=== PATIENT | male | born 1975 | race Caucasian/White ===

== ENCOUNTER 2019-05-17 10:46 | Observation (INO) | payer BC ==
[2019-05-17] MEDS ORDERED: SODIUM CHLORIDE 0.9% 500 ML 500 ML IV STA (11:12)
--- NOTE | 2019-05-17 11:27 | ED ---
General Adult HPI - General Chief complaint: Neuro Symptoms/Deficit Stated complaint: Hand numbness Time Seen by Provider: 05/17/19 10:47 Source: patient, RN notes reviewed Mode of arrival: ambulatory Limitations: no limitations - History of Present Illness Initial comments: This is a 44-year-old male who presents to the emergency department stating that on his way home from [employer] she had tingling in his left hand and then he had inability to coordinate his thumb to finger movements. Patient states it lasted a few minutes and then seemed to subside but the tingling remained and then it occurred again for about 2 minutes. Patient states he had no other weakness except in his left hand. 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 Patient states he continues to tingling at this time. Patient at no time had a headache he denies any other areas of weakness. Patientis a recent visual disturbance. Patient denies any chest pain palpitations difficulty breathing shortness of breath. Patient denies any other time when he had similar symptoms. Patient denies any recent fever chills or cough. Patient denies any neck pain or injury. Patient denies any medical problems. - Related Data Home Medications Medication Instructions Recorded Confirmed Cetirizine HCl [Zyrtec] 10 mg PO DAILY PRN 05/17/19 05/17/19 Allergies Allergy/AdvReac Type Severity Reaction Status Date / Time No Known Allergies Allergy Verified 05/17/19 10:58 Review of Systems ROS Statement: Those systems with pertinent positive or pertinent negative responses have been documented in the HPI. ROS Other: All systems not noted in ROS Statement are negative. Past Medical History Past Medical History: No Reported History History of Any Multi-Drug Resistant Organisms: None Reported Past Surgical History: No Surgical Hx Reported Past Psychological History: No Psychological Hx Reported Smoking Status: Never smoker Past Alcohol Use History: Occasional Past Drug Use History: None Reported General Exam - General Exam Comments Initial Comments: GENERAL: Patient is well-developed and well-nourished. Patient is nontoxic and well- hydrated and is in no acute distress. ENT: Neck is soft and supple. No significant lymphadenopathy is noted. Oropharynx is clear. Moist mucous membranes. Neck has full range of motion without eliciting any pain. EYES: The sclera were anicteric and conjunctiva were pink and moist. Extraocular movements were intact and pupils were equal round and reactive to light. Eyelids were unremarkable. PULMONARY: Unlabored respirations. Good breath sounds bilaterally. No audible rales rhonchi or wheezing was noted. CARDIOVASCULAR: There is a regular rate and rhythm without any murmurs gallops or rubs. ABDOMEN: Soft and nontender with normal bowel sounds. No palpable organomegaly was noted. There is no palpable pulsatile mass. SKIN: Skin is clear with no lesions or rashes and otherwise unremarkable. NEUROLOGIC: Patient is alert and oriented x3. Cranial nerves II through XII are grossly intact. Motor and sensory are also intact. Normal speech, volume and content. Symmetrical smile. Finger to nose cerebellar testing is normal bilaterally MUSCULOSKELETAL: Normal extremities with adequate strength and full range of motion. No lower extremity swelling or edema. No calf tenderness. LYMPHATICS: No significant lymphadenopathy is noted PSYCHIATRIC: Normal psychiatric evaluation. Limitations: no limitations Course Vital Signs 05/17/19 05/17/19 10:47 13:41 Temperature 98.1 F 97.2 F L Pulse Rate 85 75 Respiratory 18 18 Rate Blood Pressure 153/104 134/88 O2 Sat by Pulse 99 98 Oximetry Medical Decision Making - Medical Decision Making Patient did not have any documentable neurologic deficit. Patient's did state she watched him try to touch his thumb to all of his fingers and he was missing and in doing it very slowly in comparison to his right hand. EKG shows normal sinus rhythm at 67 bpm HI interval 132 QRS is under 12 QT interval 426 QTC is 450. Patient's EKG shows no ST segment elevation or de pression or T wave abnormalities are noted. Patient's chest x-ray shows no acute normalities. CT of the brain shows no acute normalities. Patient's hand still feels weird to him though he is able to move it he feels as though his fifth digit is still not moving as well as it should. - Lab Data Result diagrams: 05/17/19 11:15 05/17/19 11:15 Lab Results 05/17/19 05/17/19 05/17/19 Range/Units 11:15 11:15 11:15 WBC 5.3 (3.8-10.6) k/uL RBC 4.83 (4.30-5.90) m/uL Hgb 15.9 (13.0-17.5) gm/dL Hct 45.8 (39.0-53.0) % MCV 94.8 (80.0-100.0) fL MCH 32.8 (25.0-35.0) pg MCHC 34.6 (31.0-37.0) g/dL RDW 14.0 (11.5-15.5) % Plt Count 233 (150-450) k/uL Neutrophils % 49 % Lymphocytes % 31 % Monocytes % 9 % Eosinophils % 8 % Basophils % 1 % Neutrophils # 2.6 (1.3-7.7) k/uL Lymphocytes # 1.6 (1.0-4.8) k/uL Monocytes # 0.5 (0-1.0) k/uL Eosinophils # 0.4 (0-0.7) k/uL Basophils # 0.1 (0-0.2) k/uL PT 10.5 (9.0-12.0) sec INR 1.0 (<1.2) APTT 24.6 (22.0-30.0) sec Sodium 137 (137-145) mmol/L Potassium 3.8 (3.5-5.1) mmol/L Chloride 106 (98-107) mmol/L Carbon Dioxide 23 (22-30) mmol/L Anion Gap 8 mmol/L BUN 20 (9-20) mg/dL Creatinine 1.14 (0.66-1.25) mg/dL Est GFR (CKD-EPI)AfAm 90 (>60 ml/min/1.73 sqM) Est GFR (CKD-EPI)NonAf 78 (>60 ml/min/1.73 sqM) Glucose 118 H (74-99) mg/dL Calcium 9.1 (8.4-10.2) mg/dL Total Bilirubin 0.8 (0.2-1.3) mg/dL AST 27 (17-59) U/L ALT 22 (21-72) U/L Alkaline Phosphatase 54 (38-126) U/L Troponin I (0.000-0.034) ng/mL Total Protein 6.8 (6.3-8.2) g/dL Albumin 4.2 (3.5-5.0) g/dL 05/17/19 Range/Units 11:15 WBC (3.8-10.6) k/uL RBC (4.30-5.90) m/uL Hgb (13.0-17.5) gm/dL Hct (39.0-53.0) % MCV (80.0-100.0) fL MCH (25.0-35.0) pg MCHC (31.0-37.0) g/dL RDW (11.5-15.5) % Plt Count (150-450) k/uL Neutrophils % % Lymphocytes % % Monocytes % % Eosinophils % % Basophils % % Neutrophils # (1.3-7.7) k/uL Lymphocytes # (1.0-4.8) k/uL Monocytes # (0-1.0) k/uL Eosinophils # (0-0.7) k/uL Basophils # (0-0.2) k/uL PT (9.0-12.0) sec INR (<1.2) APTT (22.0-30.0) sec Sodium (137-145) mmol/L Potassium (3.5-5.1) mmol/L Chloride (98-107) mmol/L Carbon Dioxide (22-30) mmol/L Anion Gap mmol/L BUN (9-20) mg/dL Creatinine (0.66-1.25) mg/dL Est GFR (CKD-EPI)AfAm (>60 ml/min/1.73 sqM) Est GFR (CKD-EPI)NonAf (>60 ml/min/1.73 sqM) Glucose (74-99) mg/dL Calcium (8.4-10.2) mg/dL Total Bilirubin (0.2-1.3) mg/dL AST (17-59) U/L ALT (21-72) U/L Alkaline Phosphatase (38-126) U/L Troponin I <0.012 (0.000-0.034) ng/mL Total Protein (6.3-8.2) g/dL Albumin (3.5-5.0) g/dL Disposition Clinical Impression: Transient cerebral ischemia Disposition: ADMITTED IP TO THIS HOSP Referrals: Sha Isbell MD [Primary Care Provider] - 1-2 days Time of Disposition: 14:13
[2019-05-17 11:33] LABS: Basophils # (A) 0.1 k/uL (0-0.2); Basophils % (A) 1 %; Eosinophils # (A) 0.4 k/uL (0-0.7); Eosinophils % (A) 8 %; HCT 45.8 % (39.0-53.0); HGB 15.9 gm/dL (13.0-17.5); Lymphocytes # (A) 1.6 k/uL (1.0-4.8); Lymphocytes % (A) 31 %; MCH 32.8 pg (25.0-35.0); MCHC 34.6 g/dL (31.0-37.0); MCV 94.8 fL (80.0-100.0); Mean Platelet Volume 6.8; Monocytes # (A) 0.5 k/uL (0-1.0); Monocytes % (A) 9 %; Neutrophils # (A) 2.6 k/uL (1.3-7.7); Neutrophils % (A) 49 %; Platelet Count 233 k/uL (150-450); RBC 4.83 m/uL (4.30-5.90); WBC 5.3 k/uL (3.8-10.6)
[2019-05-17 11:46] LABS: Albumin 4.2 g/dL (3.5-5.0); Calcium 9.1 mg/dL (8.4-10.2); Potassium 3.8 mmol/L (3.5-5.1); Total Bilirubin 0.8 mg/dL (0.2-1.3); Total Protein 6.8 g/dL (6.3-8.2)
--- NOTE | 2019-05-17 11:47 | CT ---
EXAMINATION TYPE: CT brain wo con DATE OF EXAM: 05/17/2019 COMPARISON: NONE HISTORY: Lt hand numbness CT DLP: 1079.4 mGycm Automated exposure control for dose reduction was used. FINDINGS: Central structures are midline. There is no evidence of hydrocephalus. No acute focal lesion, mass ef fect or midline shift is seen. I do not see evidence of intracranial blood. Visualized portions of the paranasal sinuses are clear. The bony calvarium is intact. IMPRESSION: NO ACUTE INTRACRANIAL ABNORMALITY.
--- NOTE | 2019-05-17 11:48 | XR ---
EXAMINATION TYPE: XR chest 2V DATE OF EXAM: 05/17/2019 HISTORY: altered mental status. REFERENCE: Previous study dated 07/22/2013. FINDINGS: The lungs are clear. Pleural space are clear. The heart is not enlarged. IMPRESSION: NORMAL CHEST.
[2019-05-17 11:51] LABS: Partial Thromboplastin Time 24.6 sec (22.0-30.0); Prothrombin Time 10.5 sec (9.0-12.0)
[2019-05-17] MEDS ORDERED: ASPIRIN 325 MG TAB PO STA (14:13)
--- NOTE | 2019-05-17 15:58 | US ---
EXAMINATION TYPE: US carotid duplex BILAT DATE OF EXAM: 05/17/2019 COMPARISON: NONE CLINICAL HISTORY: Stenosis. EXAM MEASUREMENTS: RIGHT: Peak Systolic Velocity (PSV) cm/sec ----- Right CCA: 107.7 ----- Right ICA: 66.9 ----- Right ECA: 104.8 ICA/CCA ratio: 0.61 RIGHT: End Diastole cm/sec ----- Right CCA: 23.6 ----- Right ICA: 24.1 ----- Right ECA: 19.2 LEFT: Peak Systolic Velocity (PSV) cm/sec ----- Left CCA: 93.2 ----- Left ICA: 84.6 ----- Left ECA: 88.6 ICA/CCA ratio: 0.9 LEFT: End Diastole cm/sec ----- Left CCA: 23.6 ----- Left ICA: 29.7 ----- Left ECA: 13.8 VERTEBRALS (direction of flow): Right Vertebral: Antegrade Left Vertebral: Antegrade Rhythm: Normal Minimal atherosclerotic changes with no significant velocity increases. IMPRESSION: There is antegrade flow in the vertebral arteries. The images and measurements suggest l ess than 25% stenosis in both internal carotid arteries. Criteria for Assigning % of Stenosis / Diameter reduction (Estimation based on the indirect measurements of the internal carotid artery velocities (ICA PSV). 1. Normal (no stenosis)=ICA PSV < 125 cm/s: ratio < 2.0: ICA EDV<40 cm/s. 2. Less than 50% stenosis=ICA PSV < 125 cm/s: ratio < 2.0: ICA EDV<40 cm/s. 3. 50 to 69% stenosis=ICA PSV of 125 to 230 cm/s: ration 2.0 ? 4.0: ICA EDV 40-100 cm/s. 4. Greater than 70% stenosis to near occlusion= ICA PSV > 230 cm/s: ratio > 4.0: ICA EDV > 100 cm/s. 5. Near occlusion= ICA PSV velocities may be low or undetectable: variable ratio and ICA EDV. 6. Total occlusion=unable to detect flow.
--- NOTE | 2019-05-17 16:55 | P.HPIM ---
History of Present Illness H&P Date: 05/17/19 Chief Complaint: Weakness of the left ring and little finger Mr. Romero is a 43-year-old male with no significant past medical history coming into the hospital with a chief complaint of weakness of the left ring and little fingers for a few minutes. He states that he was on his way home from work when he noticed some tingling sensation in his left hand. 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 And when he tried to count his fingers with the right thumb he was not able to do it for a couple of minutes. At that time patient denies having any weakness in other parts of the body. He denies having any headaches, blurring of vision. No chest pain or palpitations. No difficulty in breathing. He denies having similar complaints in the past. Patient denies having any neck pain or injuries in the past. Patient does not have any medical histories. He does not take any medications. No history of smoking. 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 He is a very active person. Occasionally drinks alcohol. He denies having any family history of stroke or coronary artery dis ease. Patient reports that these symptoms have been there only for a few minutes and completely resolved since he has been in the ED. In the emergency room the patient had blood work done that was within normal limits. Troponins within normal limits. He had a brain CT that was within normal limits and EKG within normal limits. He also had a carotid artery Doppler study that was showing less than 25% stenosis in both internal carotid arteries. Review of Systems REVIEW OF SYSTEMS: PSYCH: No history of anxiety or depression NEURO: As per HPI VASCULAR: No edema. HEMATOLOGIC: No history of easy bleeding and bruising . No recent infections . RESPIRATORY: No cough, No SOB, No chest discomfort. 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 GI: No abdominal pain, Nausea or vomiting. No constipation or diarrhea. 13 review of systems done and negative except for the ones mentioned above Past Medical History Past Medical History: No Reported History History of Any Multi-Drug Resistant Organisms: None Reported Past Surgical History: No Surgical Hx Reported Past Anesthesia/Blood Transfusion Reactions: No Reported Reaction Past Psychological History: No Psychological Hx Reported Smoking Status: Never smoker Past Alcohol Use History: Occasional Past Drug Use History: None Reported - Past Family History Father Additional Family Medical History / Comment(s): no medical history Mother Additional Family Medical History / Comment(s): no medical history Medications and Allergies Home Medications Medication Instructions Recorded Confirmed Type Cetirizine HCl [Zyrtec] 10 mg PO DAILY PRN 05/17/19 05/17/19 History Allergies Allergy/AdvReac Type Severity Reaction Status Date / Time No Known Allergies Allergy Verified 05/17/19 10:58 Physical Exam Vitals: Vital Signs Temp Pulse Pulse Resp BP BP Pulse Ox 05/17/19 15:24 97.8 F 61 18 143/88 98 05/17/19 15:17 98.3 F 97 18 143/102 98 05/17/19 13:41 97.2 F L 75 18 134/88 98 05/17/19 10:47 98.1 F 85 18 153/104 99 Intake and Output 05/17/19 05/17/19 05/17/19 06:59 14:59 22:59 Intake Total 400 Balance 400 Intake: Oral 400 Other: Voiding Method Toilet Weight 80.739 kg GEN. APPEARANCE: alert, in no apparent distress HEAD EXAM: Atraumatic normocephalic EYE EXAM: Pupils round and reactive to light. No pallor. No icterus. ENT EXAM: normal exam, mucous membranes moist NECK EXAM: No JVD. No thyromegaly. RESPIRATORY EXAM: Bilateral breath sounds are positive. No wheeze or crackles. CARDIOVASCULAR EXAM: S1-S2 heard. No additional sounds. GI/ABDOMINAL EXAM: soft, normal bowel sounds. No guarding or rigidity. No organomegaly. EXTREMITIES EXAM: No pedal edema. NEUROLOGICAL EXAM: alert, oriented X3, no focal neurological deficits. Strength is 5 out of 5 in all 4 extremities. Power is 5 out of 5 in all 4 extr emities. Ankle to heel test normal, Finger-nose test normal. Gait is normal. PSYCHIATRIC EXAM: normal affect, normal mood SKIN EXAM: warm, dry, intact, normal color. Absent: rash Results CBC & Chem 7: 05/17/19 11:15 05/17/19 11:15 Labs: Abnormal Lab Results - Last 24 Hours (Table) 05/17/19 Range/Units 11:15 Glucose 118 H (74-99) mg/dL Thrombosis Risk Factor Assmnt - Choose All That Apply Any of the Below Risk Factors Present?: Yes Each Factor Represents 1 point: Age 41-60 years Thrombosis Risk Factor Assessment Total Risk Factor Score: 1 Thrombosis Risk Factor Assessment Level: Low Risk Assessment and Plan Assessment: ASSESSMENT Weakness of the left hand - probably TIA PLAN: Patient has resolution of the symptoms within couple of minutes, probably TIA. He had a CAT scan of the head, EKG, carotid artery Doppler that was within normal limits. Will observe the patient for 24 hours, will get an echocardiogram. Further recommendations depending on the progress of the patient. The treatment plan was discussed in detail with the patient at the bedside.
[2019-05-17 21:42] VITALS: RESP 16
--- NOTE | 2019-05-17 21:44 | P.CNNES ---
History of Present Illness Consult date: 05/17/19 Requesting physician: Sha Finney Reason for Consult: TIA Chief complaint: Left arm/hand went numb and weak History of Present Illness: This is a 44 RH male who was driving with his left elbow rested against the inside of the car door when suddenly he experienced numbness/tingling of the 4th and 5th digits on the left as well as loss of manual dexterity of the same hand. The right side was never affected. The above neuro symptoms have improved. Patient decided to stay for inpatient work-up after discussion with ER MD as his neuro symptoms still have not completely resolved. Denies head/neck/LUE trauma. 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 Denies neck pain, cervical radicular symptoms or Lhermitte's. He also denies any conventional vascular risk factors such as HTN, DM, HL or tobacco use. Review of Systems 14-point ROS performed and as per HPI. Neurologically, patient denies decreased level or loss of consciousness, headache, seizure, changes in vision, diplopia, amaurosis, changes in hearing, facial droop, ptosis, vertigo, hearing loss, tinnitus, dysarthria, dysphagia, aphasia, other focal numbness/weakness not mentioned above, tremors, bowel/bladder incontinence or ataxia. Past Medical History Past Medical History: No Reported History History of Any Multi-Drug Resistant Organisms: None Reported Past Surgical History: No Surgical Hx Reported Past Anesthesia/Blood Transfusion Reactions: No Reported Reaction Past Psychological History: No Psychological Hx Reported Smoking Status: Never smoker Past Alcohol Use History: Occasional Past Drug Use History: None Reported - Past Family History Father Additional Family Medical History / Comment(s): no medical history Mother Additional Family Medical History / Comment(s): no medical history Medications and Allergies Home Medications Medication Instructions Recorded Confirmed Type Cetirizine HCl [Zyrtec] 10 mg PO DAILY PRN 05/17/19 05/17/19 History Allergies Allergy/AdvReac Type Severity Reaction Status Date / Time No Known Allergies Allergy Verified 05/17/19 10:58 Physical Examination - Vital Signs Vital Signs: Vital Signs Temp Pulse Pulse Resp BP BP Pulse Ox 05/17/19 15:24 97.8 F 61 18 143/88 98 05/17/19 15:17 98.3 F 97 18 143/102 98 05/17/19 13:41 97.2 F L 75 18 134/88 98 05/17/19 10:47 98.1 F 85 18 153/104 99 Intake and Output 05/17/19 05/17/19 05/17/19 06:59 14:59 22:59 Intake Total 622 Balance 622 Intake: Oral 622 Other: Voiding Method Toilet Weight 80.739 kg Gen NAD Pleasant and cooperative HEENT NCAT Sclera without icterus O/P clear Neck Supple No carotid bruit Cor RRR no m/r/g Lungs CTAB Abd Soft NTND +BS Ext Warm to touch No edema Neuro MS A+Ox4 Normal fluency Able to follow all commands CN PERRL VFF no APD EOMI no nystagmus or FLY No facial asymmetry Masseter's symmetric Hearing intact to normal voice bilaterally Speech not dysarthric Equal elevation of palate Tongue midline Sym shrug and SCM bilaterally Motor Normal bulk/tone No pronator or tremors Strength 5/5 sym throughout Sens Diminished to LT in medial left hand No neglect or extinction Percussion of the left medial wrist and medial epicondyle does not worsen paresthesias No Lhermitte's Coord No dysmetria on FTN bilaterally FFN slightly less dextrous on the left though this is his non-dominant hand DTRs 2+/4 sym throughout Toes downgoing bilaterally No clonus at achilles Gait Deferred NIHSS 1 Results - Laboratory Findings CBC and BMP: 05/17/19 11:15 05/17/19 11:15 Abnormal Lab Findings: Abnormal Labs 05/17/19 11:15 Glucose 118 H - Diagnostic Findings Additional findings: CT Head wo cont 05/17/19. No ICH. Nil acute. Carotid duplex 05/17/19. <25% stenosis in BICA. Bilateral antegrade flow of vertebral arteries. I have reviewed neuroimages myself. Assessment and Plan Assessment: LUE numbness/weakness. Given his lack of stroke risk factors and clinical presentation, TIA is possible but also suspect ulnar nerve i rritation/neuropathy. Plan: -MRI Brain ordered -If MRI negative, can discontinue aspirin and set patient up for outpatient neuro follow-up and EMG/NCS to r/o ulnar n. entrapment -Carotid duplex reviewed and unrevealing -TTE ordered by primary team -Fasting lipids in am. Goal depends on whether he rules in for acute intracranial ischemia on MRI. If so, goal LDL would be <70 -PT/OT/SP per protocol -Stroke education given -DVT prophylaxis -Meanwhile, counseled patient not to bend and/or rest left elbow against surface for extended periods of time -d/w patient and family in detail. All questions answered. Thank you for this consultation. Please call with ?. Time with Patient: Greater than 30 (Time spent in direct patient care, greater than 50% of which was spent in [id number] counseling and coordination of care: 70 minutes)
[2019-05-18 06:34] LABS: Cholesterol 159 mg/dL (<200); HDL Cholesterol 40 mg/dL (40-60); LDL Cholesterol,Calculated 100 mg/dL (0-99); Triglycerides 95 mg/dL (<150)
[2019-05-18] MEDS ORDERED: ATORVASTATIN 40 MG TAB PO SCH (09:00)
[2019-05-18] MEDS ORDERED: ASPIRIN 325 MG TAB PO SCH (09:00)
[2019-05-18 09:55] VITALS: BP 132/72; PULSE 58; TEMP 98.7
--- NOTE | 2019-05-18 11:24 | P.PN ---
Progress Note - Text Progress Note Date: 05/18/19 Called by RN just now as patient refuses to stay for MRI or follow up with outpatient neurology. Will have him sign out AMA then. No further inpatient neuro recs at this time. Please call with new ?.
--- NOTE | 2019-05-18 11:30 | ECHOF ---
Referral Reason:TIA MEASUREMENTS -------- HEIGHT: 182.9 cm WEIGHT: 79.8 kg BP: 129/79 RVIDd: 3.2 cm (< 3.3) IVSd: 0.7 cm (0.6 - 1.1) LVIDd: 4.2 cm (3.9 - 5.3) LVPWd: 0.8 cm (0.6 - 1.1) IVSs: 1.2 cm LVIDs: 3.0 cm LVPWs: 1.5 cm Ao Diam: 3.0 cm (2.0 - 3.7) AV Cusp: 2.0 cm (1.5 - 2.6) LA Diam: 3.1 cm (2.7 - 3.8) MV EXCURSION: 11.800 mm (> 18.000) MV EF SLOPE: 69 mm/s (70 - 150) EPSS: 0.6 cm MV E Carlos: 0.61 m/s MV DecT: 247 ms MV A Carlos: 0.48 m/s MV E/A Ratio: 1.28 RAP: 5.00 mmHg RVSP: 20.96 mmHg FINDINGS -------- Sinus rhythm. This was a technically good study. The left ventricular size is normal. Left ventricular wall thickness is normal. Overall left vent ricular systolic function is normal with, an EF between 55 - 60 %. The right ventricle is normal in size. The left atrial size is normal. The right atrial size is normal. Interatrial and interventricular septum intact. The aortic valve is trileaflet and appears structurally normal. The mitral valve is normal. The mitral valve leaflets are mildly thickened. There is trace mitral regurgitation. Trace tricuspid regurgitation present. Right ventricular systolic pressure is normal at < 35 mmHg. Trace/mild (physiologic) pulmonic regurgitation. The aortic root size is normal. Normal inferior vena cava with normal inspiratory collapse consistent with estimated right atrial pre ssure of 5 mmHg. There is no pericardial effusion. CONCLUSIONS -------- 1. Sinus rhythm. 2. This was a technically good study. 3. The left ventricular size is normal. 4. Left ventricular wall thickness is normal. 5. Overall left ventricular systolic function is normal with, an EF between 55 - 60 %. 6. The right ventricle is normal in size. 7. The left atrial size is normal. 8. The right atrial size is normal. 9. Interatrial and interventricular septum intact. 10. The aortic valve is trileaflet and appears structurally normal. 11. The mitral valve is normal. 12. The mitral valve leaflets are mildly thickened. 13. There is trace mitral regurgitation. 14. Trace tricuspid regurgitation present. 15. Right ventricular systolic pressure is normal at < 35 mmHg. 16. Trace/mild (physiologic) pulmonic regurgitation. 17. The aortic root size is normal. 18. Normal inferior vena cava with normal inspiratory collapse consistent with estimated right atrial pressure of 5 mmHg. 19. There is no pericardial effusion. CRIME DATA SPECIALIST: Mary Pak RDCS
--- NOTE | 2019-05-18 11:39 | P.DS ---
Providers Date of admission: 05/17/19 14:13 Expected date of discharge: 05/18/19 Attending physician: Dorothy Clark Consults: 05/17/19 14:28 Consult Physician Urgent Consulting Provider: Debbie Melgar Consult Reason/Comments: TIA Do you want consulting provider notified?: Yes Primary care physician: [facility] Course: Mr. Romero is a 43-year-old male with no significant past medical history coming into the hospital with a chief complaint of weakness of the left ring and little fingers for a few minutes. He states that he was on his way home from work when he noticed some tingling sensation in his left hand. Patient states that he felt his collar stay fuser tender was weak. And when he tried to count his fingers with the right thumb he was not able to do it for a couple of minutes. At that time patient denies having any weakness in other parts of the body. He denies having any headaches, blurring of vision. No chest pain or palpitations. No difficulty in breathing. He denies having similar complaints in the past. Patient denies having any neck pain or injuries in the past. Patient does not have any medical histories. He does not take any medications. No history of smoking. 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 He is a very active person. Occasionally drinks alcohol. He denies having any family history of stroke or coronary artery disease. Patient reports that these symptoms have been there only for a few minutes and completely resolved since he has been in the ED. In the emergency room the patient had blood work done that was within normal limits. Troponins within normal limits. He had a brain CT that was within normal limits and EKG within normal limits. He also had a carotid artery Doppler study that was showing less than 25% stenosis in both internal carotid arteries. On 05/18/2019 - patient was evaluated by neurologist last night. He was recommended to get an MRI that is scheduled for this evening. Discussed the plan in detail with the patient, he stated that he could not wait for that long and would leave the hospital AGAINST MEDICAL ADVICE. Medication reconciliation could not be done as the patient left AGAINST MEDICAL ADVICE. DISCHARGE DIAGNOSIS Weakness/numbness of the left hand - probably TIA Patient Condition at Discharge: Serious Plan - Discharge Summary Discharge Rx Participant: No New Discharge Prescriptions: No Action Cetirizine HCl [Zyrtec] 10 mg PO DAILY PRN PRN Reason: Allergy Symptoms Discharge Medication List Cetirizine HCl [Zyrtec] 10 mg PO DAILY PRN 05/17/19 [History] Follow up Appointment(s)/Referral(s): Sha Isbell MD [Primary Care Provider] - 1-2 days Discharge Disposition: Left Against Medical Advice
== END 2019-05-18 11:56 | disposition left against medical advice (07) ==
LOC: EC 10:46 → 3SCARD 14:13
PROVIDERS: ADMIT Internal Medicine; ATTEND Internal Medicine
DX: R53.1 Weakness (principal); R20.2 Paresthesia of skin; R20.0 Anesthesia of skin; I65.23 Occlusion and stenosis of bilateral carotid arteries; Z79.899 Other long term (current) drug therapy; Z53.21 Procedure and treatment not carried out due to patient leaving prior to being seen by health care provider
CPT/HCPCS: 96360; 99285; 36415; 93005; 93306; 80061 ×2; 80053; 84484; 85025; 85610; 85730; 71046; 93880; 70450; G0378 ×2

== ENCOUNTER → 2024-12-14 | Outpatient (CLI) | payer OTHER ==
--- NOTE | 2024-12-14 10:46 | XR ---
EXAMINATION TYPE: XR elbow complete RT DATE OF EXAM: 12/14/2024 10:41 AM COMPARISON: None. CLINICAL INDICATION: Male, 49 years old with history of S53.401A UNSPECIFIED SPRAIN OF RIGHT ELBOW, Sue CARPENTER, TECHNIQUE: XR elbow complete RT XX views were obtained. FINDINGS: There is no acute fracture/dislocation evident of the elbow. No abnormal fat pad signs are seen. Tin y ossific density adjacent to the olecranon region could reflect olecranon bursitis. The overlying so ft tissue appears unremarkable. IMPRESSION: There is no acute fracture or dislocation of the elbow. ICD 10 NO FRACTURE, INITIAL EVALUATION [facility], , 12/14/2024 10:44 AM
== END | disposition home or self-care (01) ==
LOC: RADXRMAIN 10:28
PROVIDERS: ATTEND Emergency Medicine
DX: S53.401A Unspecified sprain of right elbow, initial encounter (principal)

== ENCOUNTER → 2024-12-28 | Outpatient (CLI) | payer OTHER ==
--- NOTE | 2024-12-28 22:40 | MR ---
EXAMINATION TYPE: MR elbow RT wo con DATE OF EXAM: 12/28/2024 10:25 PM COMPARISON: 12/14/2024. CLINICAL INDICATION: Male, 49 years old with history of S53.401D; PHH, Right elbow pain due to work i njury TECHNIQUE: Multiplanar multi-sequence imaging was performed of the elbow joint. No gadolinium given. FINDINGS: Ligaments and tendons: There is tortuous appearance of the biceps brachii tendon series 401 image 13. The tendon is retracted up to 3.0 cm. No definitive fibers remain attached to the radial tuberosity. The lateral ulnar collateral ligament, annular ligament, and lateral collateral ligament are intact. The common flexor tendon, brachialis tendon, and triceps tendon are within normal limits. Osseous structures: The remaining bone marrow signal intensity is unremarkable. IMPRESSION: Complete/near-complete tear of the biceps tendon with 3.0 cm of retraction. Surgical consultation rec ommended. [facility], , 12/28/2024 10:37 PM
== END | disposition home or self-care (01) ==
LOC: RADMRIMAIN 21:45
PROVIDERS: ATTEND Emergency Medicine
DX: S46.211D Strain of muscle, fascia and tendon of other parts of biceps, right arm, subsequent encounter (principal); S53.401D Unspecified sprain of right elbow, subsequent encounter